=== PATIENT | male | born 1980 | race Caucasian/White ===

== ENCOUNTER 2016-09-19 15:56 | Emergency (ER) | payer OTHER ==
[2016-09-19 16:36] VITALS: BP 136/86
[2016-09-19] MEDS ORDERED: TORADOL IM ONE (21:21)
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
--- NOTE | 2016-09-20 07:37 | XRay Report ---
RIGHT HAND, 2 views: History: Pain. The bony architecture is intact. Bony alignment is normal. No soft tissue abnormalities are seen. The joint spaces appear preserved. IMPRESSION: Normal right hand.
--- NOTE | 2016-09-20 07:37 | XRay Report ---
RIGHT FINGERS, 2 VIEWS History: Pain. Findings: Lateral and oblique views of the right fourth digit were obtained. No acute osseous findings or joint pathology is identified. The soft tissues are within normal limits. Impression: Unremarkable right fourth digit.
== END 2016-09-19 21:54 | disposition home or self-care (01) ==
LOC: ED 15:56
DX: S61.451A Open bite of right hand, initial encounter (principal); F17.200 Nicotine dependence, unspecified, uncomplicated; F12.10 Cannabis abuse, uncomplicated; E11.9 Type 2 diabetes mellitus without complications; Z98.890 Other specified postprocedural states; Y04.1XXA Assault by human bite, initial encounter; Y93.89 Activity, other specified; Y92.89 Other specified places as the place of occurrence of the external cause; Y99.8 Other external cause status
CPT/HCPCS: 73120; 73140; 96372; 99283; J1885